=== PATIENT | female | born 1970 | race Caucasian/White ===

== ENCOUNTER 2019-01-15 18:16 | Observation (INO) | payer OTHER ==
[2019-01-15] MEDS ORDERED: Nitroglycerin 2% Ointment 1 INCH/1 GM Packet ONE (18:42)
[2019-01-15] MEDS ORDERED: Aspirin Chewable 81 MG TAB ONE (18:42)
[2019-01-15 19:23] LABS: #Basophils 0.1 thou/uL (0.0-0.2); #Eosinphils 0.5 thou/uL (0.0-0.7); #Lymphocytes 2.1 thou/uL (1.20-3.40); #Monocytes 0.6 thou/uL (0.11-0.59); %Basophils 0.7 % (0.0-1.0); %Eosinophils 5.6 % (0.0-10.0); %Lymphocytes 25.1 % (21.0-51.0); %Monocytes 6.9 % (0.0-10.0); %Neutrophils 61.7 % (42.0-75.0); Hemoglobin 10.8 g/dL (12.0-16.0); Mean Corpuscular HGB CONC 32.5 g/dL (32.0-36.0); Mean Corpuscular Hemoglobin 29.5 pg (27.0-31.0); Mean Corpuscular Volume 90.9 fL (78.0-98.0); Mean Platelet Volume 7.6 fL (7.4-10.4); Platelet Count 278 thou/uL (130-400); RBC Distribution Width 11.7 % (11.5-14.5); Red Blood Cell (RBC) Count 3.66 mill/uL (4.20-5.40); White Blood Cell (WBC) Count 8.2 thou/uL (4.8-10.8)
--- NOTE | 2019-01-15 19:41 | RAD ---
CHEST ONE VIEW: 01/15/19 HISTORY: Heart failure. COMPARISON: None. FINDINGS: The lungs are mildly hypoinflated with basilar atelectasis. No pneumothorax. No effusion. No acute os seous abnormality. IMPRESSION: Mild lung hypoinflation with vascular crowding. POS: [facility]
[2019-01-15 19:52] LABS: ALT (SGPT) 14 U/L (8-55); AST (SGOT) 14 U/L (5-34); Albumin 3.6 g/dL (3.5-5.0); Alkaline Phosphatase 54 U/L (40-150); Anion Gap 14 mmol/L (10-20); BUN (Urea Nitrogen) 19 mg/dL (7.0-18.7); Bilirubin, Total 0.3 mg/dL (0.2-1.2); Calc. Creatinine Clearance 0 mL/min (70-130); Calcium 9.1 mg/dL (7.8-10.44); Carbon Dioxide 25 mmol/L (22-29); Chloride 103 mmol/L (98-107); Estimated GFR-MDRD 76; Globulin 2.3 g/dL (2.4-3.5); Glucose 128 mg/dL (70-105); Magnesium 1.4 mg/dL (1.6-2.6); Protein, Total 5.9 g/dL (6.0-8.3); Sodium 138 mmol/L (136-145)
[2019-01-15 20:11] LABS: CKMB 2.9 ng/mL (0-6.6)
[2019-01-15] MEDS ORDERED: HumaLOG 300 UNITS/3 ML VIAL SC PRN ×2 (21:33)
[2019-01-15] MEDS ORDERED: Ondansetron ODT 4 MG TAB PO PRN (21:33)
[2019-01-15] MEDS ORDERED: Dextrose 50% Abboject 50 ML SYRINGE SLOW IVP PRN (21:33)
[2019-01-15] MEDS ORDERED: Dextrose 5% in Water 1,000 ML IV PRN (21:33)
[2019-01-15] MEDS ORDERED: Ondansetron PF 4 MG/2 ML Vial IVP PRN (21:33)
[2019-01-15] MEDS ORDERED: Acetaminophen 325 MG TAB PO PRN (21:33)
--- NOTE | 2019-01-15 22:22 | HP ---
PRIMARY CARE PHYSICIAN: Jesu De La Vega MD PRIMARY DENTAL [place] PROCESSOR: Frederick Reyna MD CHIEF COMPLAINT: Chest pain, chest pressure, and lower extremity edema. HISTORY OF PRESENT ILLNESS: Ms. Mazariegos is a pleasant 48-year-old female with past medical history of myocardial infarction, coronary artery disease with 2 stents, hypertension, hyperlipidemia, diabetes mellitus type 2, who had presented to [facility] after experiencing some chest pressure for about 2 hours earlier this morning. She states that she has also noticed about 4 pounds weight gain over the last 24 hours. She states that she took a dose of her home furosemide 20 mg around 4:00 p.m. prior to arrival to the emergency department. Upon arriving in the emergency department, she had denied any fever or chills. Denies any headache, dizziness, or vision changes. She denied any chest pain, palpitations, or shortness of breath. No abdominal pain. No nausea or vomiting. No change in her stool. No urinary symptoms. She states that the swelling in her lower extremities had improved. Serial troponin was ordered and it was noticed to be indeterminate at 0.061. Chest x-ray was obtained and showed mild lung hypoinflation with vascular crowding. No effusion. No pneumothorax was noticed. The patient appeared slightly anxious and was noticed to be in sinus tachycardia on the monitor. She states that this appears to be her baseline and her cupola liner states that she usually runs fast in the upper 90s and 100s. She states that she sees Dr. Frederick Reyna. She had a heart catheterization back in June 2018 and had 2 stents placed to her LAD. She states since that time, she has undergone an echocardiogram on September 2018, which showed ejection fraction of 40% to 45%, and another one earlier this month on December 31, 2018, which displayed an ejection fraction of 45% to 50%. She states that she has also undergone a nuclear stress test on December 21, 2017, which appeared unremarkable per patient. She states that she had seen Dr. Reyna prior to this recent workup, who had recommended stopping her home dose of Lasix. She was supposed to see Dr. Reyna next week on Thursday for further evaluation. It is determined that the patient be admitted under observation, she will be placed on home medications and monitored on telemetry, and Cardiology Services will be consulted for further recommendations. REVIEW OF SYSTEMS: All other systems reviewed and found to be negative unless mentioned in the HPI. PAST MEDICAL HISTORY: CAD with 2 stents, hypertension, hyperlipidemia, and diabetes mellitus type 2. PAST SURGICAL HISTORY: Heart catheterization with cardiac stents x2. PSYCHIATRIC HISTORY: None. SOCIAL HISTORY: The patient denies any alcohol, tobacco, or illicit drug use. FAMILY HISTORY: The patient states father had a heart attack at a very young age and in his early 50s. The patient also reports mother has diabetes. ALLERGIES: NONE. CURRENT HOME MEDICATIONS: 1. Aspirin 81 mg daily. 2. Carvedilol 25 mg oral twice daily. 3. Furosemide 20 mg as needed. 4. Lisinopril 20 mg oral once daily. 5. Metformin 1000 mg twice daily. 6. Plavix 75 mg oral once daily. 7. Atorvastatin 20 mg oral daily. 8. Hydrochlorothiazide 12.5 mg once daily. PHYSICAL EXAMINATION: VITAL SIGNS: BP 154/87, pulse 98, respirations 20, O2 saturations 98% on room air, and temp 98.0 degrees Fahrenheit. GENERAL: The patient is awake, alert, and oriented x3. No acute distress noted. HEENT: Atraumatic, normocephalic. Pupils are round and reactive to light. Extraocular muscles intact. Moist mucous membranes noted. CARDIOVASCULAR: Positive S1 and S2. Regular rate and rhythm. No murmur auscultated. RESPIRATORY: Clear to auscultation bilaterally. No wheezes, rales, or rhonchi. ABDOMEN: Soft, nontender. Bowel sounds present. No rebound. No rigidity. MUSCULOSKELETAL: Strength 5+ bilaterally in upper and lower extremities. Moves all extremities equal. Trace edema noted in bilateral lower extremities with left leg worse than right. Pedal and radial pulses are palpable 2+ bilaterally. NEUROLOGIC: Cranial nerves 2 through 12 grossly intact. No focal deficits noted. Speech intact and normal. Gait is normal. SKIN: Warm, dry, and intact. No rashes. No lesions noted. PSYCHIATRIC: Good mood and affect. No homicidal or suicidal ideation. LABORATORY DATA: WBC 8.2, RBC 3.66, hemoglobin 10.8, and platelet 278. Sodium 138, potassium 4.0, carbon dioxide 25, anion gap 14, BUN 19, creatinine 0.80, estimated GFR 76, glucose 128, troponin 0.061. DIAGNOSTIC IMAGING: Chest x-ray showed mild lung hypoinflation with vascular crowding. ASSESSMENT AND PLAN: 1. Chest pain rule out, consult Cardiology Services and obtain records from recent cardiac workup including nuclear stress test and echocardiogram done within the last 30 days. Continue on patient's home regimen. Will check D-dimer and venous doppler. 2. Hypertension, currently stable. Continue the patient's home regimen. 3. Diabetes mellitus type 2. Hold the patient's home dose of metformin and place on insulin sliding scale with Accu-Cheks. Continue on diabetic diet with consistent carbs. 4. Hyperlipidemia. Continue the patient's home atorvastatin. 5. Deep venous thrombosis and gastrointestinal prophylaxis. 6. Code status, full code. DISPOSITION: Pending further workup and clinical findings. The patient likely discharged home with outpatient followup in the next 24 to 48 hours. Job ID: [id number] MTDD
[2019-01-15 22:45] LABS: Troponin I 0.071 ng/mL (< 0.028)
[2019-01-15 22:48] VITALS: BMI 34.9
[2019-01-16 02:31] LABS: Troponin I 0.051 ng/mL (< 0.028)
[2019-01-16 07:04] LABS: #Basophils 0.1 thou/uL (0.0-0.2); #Eosinphils 0.5 thou/uL (0.0-0.7); #Lymphocytes 2.2 thou/uL (1.20-3.40); #Monocytes 0.6 thou/uL (0.11-0.59); #Neutrophils 4.6 thou/uL (1.40-6.50); %Basophils 0.7 % (0.0-1.0); %Eosinophils 6.3 % (0.0-10.0); %Lymphocytes 27.8 % (21.0-51.0); %Monocytes 7.7 % (0.0-10.0); %Neutrophils 57.6 % (42.0-75.0); Hemoglobin 10.1 g/dL (12.0-16.0); Mean Corpuscular HGB CONC 31.9 g/dL (32.0-36.0); Mean Corpuscular Hemoglobin 28.7 pg (27.0-31.0); Mean Platelet Volume 7.7 fL (7.4-10.4); Platelet Count 256 thou/uL (130-400); RBC Distribution Width 11.6 % (11.5-14.5); Red Blood Cell (RBC) Count 3.52 mill/uL (4.20-5.40); White Blood Cell (WBC) Count 7.9 thou/uL (4.8-10.8)
[2019-01-16 07:19] LABS: Anion Gap 12 mmol/L (10-20); BUN (Urea Nitrogen) 20 mg/dL (7.0-18.7); Calc. Creatinine Clearance 147 mL/min (70-130); Carbon Dioxide 25 mmol/L (22-29); Chloride 106 mmol/L (98-107); Estimated GFR-MDRD 83; Glucose 130 mg/dL (70-105); Potassium 3.8 mmol/L (3.5-5.1); Sodium 139 mmol/L (136-145)
[2019-01-16 07:47] LABS: Cardiac Risk 3.4 (Less than 4.5)
[2019-01-16] MEDS ORDERED: Magnesium 2 GM/50 ML 2 GM in Premix Bag 1 BAG IVPB SCH (08:00)
[2019-01-16] MEDS ORDERED: Carvedilol 25 MG TAB PO SCH (09:00)
[2019-01-16] MEDS ORDERED: Enoxaparin Sodium 40 MG/0.4 ML SYRINGE SC SCH (09:00)
[2019-01-16] MEDS ORDERED: Non-Formulary Item 1 EACH (Aspirin 81 MG) PO SCH (09:00)
[2019-01-16] MEDS ORDERED: Atorvastatin Calcium 20 MG TAB PO SCH (09:00)
[2019-01-16] MEDS ORDERED: Clopidogrel Bisulfate 75 MG TAB PO SCH (09:00)
[2019-01-16] MEDS ORDERED: Famotidine 20 MG TAB PO SCH (09:00)
[2019-01-16] MEDS ORDERED: Aspirin Chewable 81 MG TAB PO SCH (09:00)
--- NOTE | 2019-01-16 10:00 | ULT ---
BILATERAL LOWER EXTREMITY VENOUS ULTRASOUND WITH DOPPLER: HISTORY: Bilateral lower extremity swelling and edema. COMPARISON: None. TECHNIQUE: Swartz scale, color flow, Doppler imaging, and spectral waveform analysis performed of the left and rig ht lower extremity venous systems. FINDINGS: Bilaterally, there is compressibility, presence of flow, and augmentation of the common femoral veins , femoral veins, and popliteal veins. Flow in bilateral greater saphenous veins, profunda veins, and posterior tibial veins. IMPRESSION: No evidence of thrombus in the left or right lower extremity deep venous system. POS: [facility]
--- NOTE | 2019-01-16 14:27 | CON ---
DATE OF CONSULTATION: 01/16/2019 PRIMARY PER DIEM CLERK: Dr. Frederick Reyna. REASON FOR CONSULTATION: Chest pain. HISTORY OF PRESENT ILLNESS: Ms. Mazariegos is a very pleasant 48-year-old white female, who comes to the hospital for chest pain. She had a new diagnosis back in August 2018 of ischemic cardiomyopathy. Her EF was down to about 30% to 35%. At that time she had a heart catheterization and had to have two large stents 3.5 mm diameters drug-eluting stents to her LAD. She moved to this area recently and saw Dr. Reyna back in November. She had an echo and a stress. The stress test was done in late November and it showed a small anterior scar with no reversible ischemia. Her EF at that time was about 56%. She comes in. Initially she did not have a warning about her arteries being tight. She only had a leg swelling most likely from heart failure so she became concerned as she noticed that she had been eating a little more salt recently and her legs got more swollen and she was concerned this might be her heart again. She denies any more chest pain, tightness, pressure. No shortness of breath. PAST MEDICAL HISTORY: 1. Ischemic cardiomyopathy with an EF of 30% to 35%, improved now. 2. Coronary artery disease, status post drug-eluting stent to LAD in June of last year. 3. Hypertension. 4. Hyperlipidemia. 5. Type 2 diabetes. SURGICAL HISTORY: Heart catheterization with stents as above. SOCIAL HISTORY: No alcohol, tobacco, or drugs. FAMILY HISTORY: Father had an AK in his 50s. Mother with diabetes. OUTPATIENT MEDICATIONS: 1. Aspirin 81 a day. 2. Carvedilol 25 mg twice a day. 3. Lasix 20 mg as needed. 4. Lisinopril 10 mg a day. 5. Metformin 1000 mg b.i.d. 6. Plavix 75 mg a day. 7. Atorvastatin 10 mg a day. 8. Hydrochlorothiazide 12.5 mg a day. ALLERGIES: NO KNOWN DRUG ALLERGIES. REVIEW OF SYSTEMS: A 12-point review of systems was done and was all negative unless stated in the history of present illness. PHYSICAL EXAMINATION: VITAL SIGNS: Temperature 98.0, pulse 86, respiratory rate 16, sat 98% on room air, blood pressure 137/81. GENERAL: Awake, alert, and oriented x3 in no distress. HEENT: Normocephalic, atraumatic. NECK: Supple. LUNGS: Clear. CARDIOVASCULAR: S1, S2. No S3 or S4. No murmurs. ABDOMEN: Soft. Positive bowel sounds. EXTREMITIES: Trace edema. SKIN: Warm and dry. LABORATORY DATA: Laboratory work was reviewed. CBC with a white count of 8.2, hemoglobin of 10.8, hematocrit 33, and platelet count 278. Coags: D-dimer was normal. Chemistries are unremarkable except for a BUN of 20, creatinine was 0.74, GFR of 83, glucose was 134. Troponin I was in the indeterminate range of 0.06, 0.07, 0.05. BNP was 333, triglycerides of 73, cholesterol 124, LDL of 72, HDL of 37. Lower extremity venous ultrasound was unremarkable. Chest x-ray was unremarkable. EKG was reviewed. Old anterior AK, but no acute issues. ASSESSMENT AND PLAN: 1. Chest pain. Unlikely to be a new coronary event. Her troponins are probably only mildly elevated from her ischemic cardiomyopathy even though her ejection fraction is normal again. This time we would just continue to treat medically. She has not missed any of her medications. She keeps a very nice log of her blood pressures and her weight and actually the main reason that got her very concerned this time around is that she noted that she had been eating a lot of salt and had increased swelling, which is what she had initially and she wanted to make sure this was not her arteries blocking up again. 2. She has an appointment with Dr. Reyna this coming Thursday, which she will keep. 3. We will sign off. She may be discharged home from the cardiac perspective. Please call with any questions. Job ID: [id number]
[2019-01-16 15:19] VITALS: BP 145/100; TEMP 96.5
== END 2019-01-16 15:17 | disposition home or self-care (01) ==
LOC: ERS 18:16 → 2SW 22:35
PROVIDERS: ADMIT Family Medicine; ATTEND Family Medicine
DX: R07.9 Chest pain, unspecified (principal); I10 Essential (primary) hypertension; E11.9 Type 2 diabetes mellitus without complications; E78.5 Hyperlipidemia, unspecified; I25.2 Old myocardial infarction; I25.10 Atherosclerotic heart disease of native coronary artery without angina pectoris; I25.5 Ischemic cardiomyopathy; Z95.5 Presence of coronary angioplasty implant and graft; Z91.09 Other allergy status, other than to drugs and biological substances; Z79.82 Long term (current) use of aspirin; Z79.84 Long term (current) use of oral hypoglycemic drugs; Z79.02 Long term (current) use of antithrombotics/antiplatelets; Z79.4 Long term (current) use of insulin; Z79.899 Other long term (current) drug therapy; Z98.890 Other specified postprocedural states
CPT/HCPCS: 36415; 36416; 71045; 80048; 80053; 80061; 82553; 83735; 83880; 84484; 85025; 85379; 93005; 93970; 96374; G0378; J3475

== ENCOUNTER 2020-08-16 14:48 | Emergency (ER) | payer OTHER ==
--- NOTE | 2020-08-16 17:21 | RAD ---
RIGHT KNEE 4 VIEWS: Date: 08/16/2020 PROVIDED CLINICAL HISTORY: Pain status post injury. FINDINGS: Vascular calcifications and surgical clips are seen. There is no evidence for fracture or other acute osseous abnormality. If there is persistent clinical concern, conservative management and follow-up imaging are advised. IMPRESSION: As above. POS: [facility]
--- NOTE | 2020-08-16 17:54 | CT ---
CT BRAIN 08/16/20 PROVIDED CLINICAL HISTORY: Headache, status post fall. FINDINGS: No comparisons. The ventricular system appears normal in size and morphology. There is no evidence fo r intracranial hemorrhage or mass effect. The extracranial soft tissues and osseous structures demons trate an unremarkable CT appearance. IMPRESSION: No evidence for intracranial hemorrhage or mass effect. POS: [facility]
== END 2020-08-16 18:47 | disposition home or self-care (01) ==
LOC: ERS 14:48
DX: S80.01XA Contusion of right knee, initial encounter (principal); S09.90XA Unspecified injury of head, initial encounter; Z79.82 Long term (current) use of aspirin; Z79.84 Long term (current) use of oral hypoglycemic drugs; Z79.899 Other long term (current) drug therapy; W01.198A Fall on same level from slipping, tripping and stumbling with subsequent striking against other object, initial encounter; Y99.0 Civilian activity done for income or pay
CPT/HCPCS: 70450